=== PATIENT | male | born 1990 | race Caucasian/White ===

== ENCOUNTER 2019-01-23 12:33 | Emergency (ER) | payer OTHER ==
[~2019-01-23] VITALS: Wt 62.0 kg
[~2019-01-23 12:33] MED LIST: AMOX500C2 PO; IBUP-1542 PO; PRED20TA PO
[2019-01-23 12:35] VITALS: BP 140/91; PULSE 91; RESP 18
[2019-01-23] MEDS ORDERED: NAPR-985 PO (15:00)
[2019-01-23] MEDS ORDERED: AMOX500C2 PO (15:00)
--- NOTE | 2019-01-23 17:12 | ERD ---
ER Documentation Chief Complaint Chief Complaint JAW PAIN AND NUMBNESS SINCE TODAY. INITIAL TOOTHACHE 3 DAYS AGO HPI 28-year-old male with past medical history of HIV, currently on medication and undetectable viral loads, presents to the emergency department complaining of left lower tooth pain intermittently for the past 4 days. Symptoms have worsened. He also reports sore throat. He tried no medication for relief of symptoms. Symptoms are currently moderate in severity. He denies any fevers, chills, or other symptoms at this time. ROS All systems reviewed and are negative except as per history of present illness. Medications Home Meds Active Scripts Naproxen* (Naprosyn*) 500 Mg Tablet, 500 MG PO BID PRN for PAIN AND/OR INFLAMMATION, #30 TAB Prov:NAIN WARD PA-C 01/23/19 Amoxicillin* (Amoxicillin*) 500 Mg Cap, 500 MG PO TID for 10 Days, CAP Prov:NAIN WARD PA-C 01/23/19 Prednisone* (Prednisone*) 20 Mg Tab, 40 MG PO DAILY for 3 Days, TAB Prov:JANA WANG MD 04/15/15 Ibuprofen* (Motrin*) 600 Mg Tab, 600 MG PO Q6, #10 TAB Prov:JANA WANG MD 04/15/15 Amoxicillin* (Amoxicillin*) 500 Mg Cap, 500 MG PO TID for 10 Days, CAP Prov:JANA WANG MD 04/15/15 Allergies Allergies: Coded Allergies: No Known Allergy (Unverified , 07/13/15) PMhx/Soc Medical and Surgical Hx: pt denies Medical Hx History of Surgery: No Anesthesia Reaction: No Hx Neurological Disorder: No Hx Respiratory Disorders: No Hx Cardiac Disorders: No Hx Psychiatric Problems: No Hx Miscellaneous Medical Probl: No Hx Alcohol Use: No Hx Substance Use: No Hx Tobacco Use: No FmHx Family History: No diabetes Physical Exam Vitals Vital Signs Date Temp Pulse Resp B/P (MAP) Pulse Ox O2 O2 Flow FiO2 Time Delivery Rate 01/23/19 98.3 91 18 140/91 98 12:35 (107) Physical Exam Const: No acute distress Head: Atraumatic Eyes: Normal Conjunctiva ENT: Normal External Ears, Nose and Mouth. Mild gingival inflammation surrounding the lower left front teeth. No obvious dental abscess. Neck: Full range of motion. No meningismus. Resp: Clear to auscultation bilaterally Cardio: Regular rate and rhythm, no murmurs Skin: No petechiae or rashes Ext: No cyanosis, or edema Neur: Awake and alert Psych: Normal Mood and Affect Procedures/MDM 28-year-old male presents to the emergency department complaining of left lower frontal dental pain. History and physical examination most consistent with possible early dental abscess. No evidence of facial cellulitis, [place] angina, sepsis, or other emergencies. The patient is stable and appropriate for discharge and further outpatient management with prescriptions for amoxicillin and naproxen. Patient advised follow-up with his dentist and primary care physician within the next 24 to 48 hours and return to the department immediately for any new or worsening or concerning symptoms. He is in agreement with the diagnosis, plan, need for follow-up, return precautions. He was disch arged in stable condition and was nontoxic and afebrile. Patient's blood pressure was elevated (>120/80) but appears stable without evidence of hypertension emergency or urgency. The patient is to follow-up and pursue outpatient monitoring and therapy with their primary care physician within 1 week and return immediately if they have any new, worsening, or concerning symptoms. Disclaimer: Inadvertent spelling and grammatical errors are likely due to EHR/dictation software use and do not reflect on the overall quality of patient care. Also, please note that the electronic time recorded on this note does not necessarily reflect the actual time of the patient encounter. Departure Diagnosis: Primary Impression: Toothache Condition: Fair Patient Instructions: Dental Pain Referrals: [facility] YOU HAVE RECEIVED A MEDICAL SCREENING EXAM AND THE RESULTS INDICATE THAT YOU DO NOT HAVE A CONDITION THAT REQUIRES URGENT TREATMENT IN THE EMERGENCY DEPARTMENT. FURTHER EVALUATION AND TREATMENT OF YOUR CONDITION CAN WAIT UNTIL YOU ARE SEEN IN YOUR DOCTORS OFFICE WITHIN THE NEXT 1-2 DAYS. IT IS YOUR RESPONSIBILITY TO MAKE AN APPOINTMENT FOR FOLOW-UP CARE. IF YOU HAVE A PRIMARY DOCTOR --you should call your primary doctor and schedule an appointment IF YOU DO NOT HAVE A PRIMARY DOCTOR YOU CAN CALL OUR PHYSICIAN REFERRAL HOTLINE AT IF YOU CAN NOT AFFORD TO SEE A PHYSICIAN YOU CAN CHOSE FROM THE FOLLOWING [facility] [address] [facility]. [facility] [address] [facility]. [address] [facility] [address] [facility] [facility] [address] [facility]. [facility] [address] [facility]. [facility] [address] [place] [facility] ([facility] walk in clinic) Additional Instructions: Call your primary care doctor TOMORROW for an appointment during the next 1-2 days.See the doctor sooner or return here if your condition worsens before your appointment time. NAIN WARD PA-C Jan 23, 2019 17:12
== END 2019-01-23 15:07 | disposition home or self-care (01) ==
LOC: FTE 12:33
DX: K08.89 Other specified disorders of teeth and supporting structures (principal); Z21 Asymptomatic human immunodeficiency virus [HIV] infection status
CPT/HCPCS: 99283

== ENCOUNTER 2019-01-28 11:17 | Emergency (ER) | payer OTHER ==
[~2019-01-28] VITALS: Ht 170.2 cm; Wt 55.5 kg
[~2019-01-28 11:17] MED LIST changes: +NAPR-985 PO
[2019-01-28 11:19] VITALS: Ht 170.2 cm; Wt 55.5 kg
[2019-01-28] MEDS ORDERED: CLINDAMYCIN 300 MG INJ IM ONE (12:30)
[2019-01-28] MEDS ORDERED: CLIN300C10 PO (12:42)
--- NOTE | 2019-01-28 12:56 | ERD ---
ER Documentation Chief Complaint Chief Complaint lt side dental infection, swelling, taking amoxicillin, not getting better HPI Patient is a 28-year-old male with past medical history of HIV, currently on antivirals and reports undetectable viral load, presents to the ER for concerns of chin swelling and pain x 2 days. Patient was seen here on 01-23-19 and given amoxicillin for his toothache. Patient states his tooth pain is completely resolved and he is now having redness and swelling to his chin for 2 days. Patient denies any fevers or chills. Patient denies any difficulty swallowing, throat pain, chest pain, shortness of breath, nausea, vomiting abdominal pain or diarrhea. ROS All systems reviewed and are negative except as per history of present illness. Medications Home Meds Active Scripts Clindamycin Hcl* (Clindamycin Hcl*) 300 Mg Capsule, 300 MG PO TID for 10 Days, CAP Prov:MUNA MURO PA-C 01/28/19 Naproxen* (Naprosyn*) 500 Mg Tablet, 500 MG PO BID PRN for PAIN AND/OR INFLAMMATION, #30 TAB Prov:NAIN WARD PA-C 01/23/19 Amoxicillin* (Amoxicillin*) 500 Mg Cap, 500 MG PO TID for 10 Days, CAP Prov:NAIN WARD PA-C 01/23/19 Prednisone* (Prednisone*) 20 Mg Tab, 40 MG PO DAILY for 3 Days, TAB Prov:JANA COLLINS MD 04/15/15 Ibuprofen* (Motrin*) 600 Mg Tab, 600 MG PO Q6, #10 TAB Prov:JANA COLLINS MD 04/15/15 Amoxicillin* (Amoxicillin*) 500 Mg Cap, 500 MG PO TID for 10 Days, CAP Prov:JANA COLLINS MD 04/15/15 Allergies Allergies: Coded Allergies: No Known Allergy (Unverified , 07/13/15) PMhx/Soc Medical and Surgical Hx: pt denies Medical Hx, pt denies Surgical Hx History of Surgery: No Anesthesia Reaction: No Hx Neurological Disorder: No Hx Respiratory Disorders: No Hx Cardiac Disorders: No Hx Psychiatric Problems: No Hx Miscellaneous Medical Probl: No Hx Alcohol Use: No Hx Substance Use: No Hx Tobacco Use: No Smoking Status: Never smoker FmHx Family History: No diabetes Physical Exam Vitals Vital Signs Date Temp Pulse Resp B/P (MAP) Pulse Ox O2 O2 Flow FiO2 Time Delivery Rate 01/28/19 98.6 118 20 118/70 97 Room Air 13:06 (86) 01/28/19 98.2 90 18 143/90 98 11:19 (107) Physical Exam GENERAL: Well-developed, well-nourished male. Appears in no acute distress. HEAD: Normocephalic, atraumatic. EYES: Pupils are equally reactive bilaterally. EOMs grossly intact. No conjunctival erythema. ENT: Moist mucous membranes. No uvula deviation. No kissing tonsils. Lower teeth are nontender to palpation. No obvious redness or swelling noted to the gumline. NECK: Supple. No meningismus. Normal range of motion of the neck. LUNG: Clear to auscultation bilaterally. No rhonchi, wheezing, rales or coarse breath sounds. HEART: Regular rate and rhythm. No murmurs, rubs or gallops. EXTREMITIES: Equal pulses bilaterally. No peripheral clubbing, cyanosis or edema. No unilateral leg swelling. NEUROLOGIC: Alert and oriented. Moving all four extremities without any difficulty. Normal speech. Steady gait. SKIN: Faint erythema noted throughout the patient's chin. Affected area is tender to touch and mildly warm. No streaking. No fluctuance. Results 24 hrs Current Medications Medications Dose Sig/Tyrell Start Time Status Last (Trade) Ordered Route PRN Stop Time Admin Dose Reason Admin Clindamycin 300 mg ONCE ONCE 01/28/19 DC 01/28/19 Phosphate IM 12:30 01/28/19 12:27 (Cleocin) 12:31 Procedures/MDM MEDICAL DECISION MAKING: This is a 28-year-old male with past medical history of male who presents to the ER for chin redness and swelling. Patient was seen here 5 days ago and at that time he was having tooth pain x2 he was started on amoxicillin. Patient is to 3 and is completely resolved and now he is having swelling and redness to his chin. Vital signs were reviewed. Patient is afebrile. Patient was not hypoxic. On exam, patient appears to have localized swelling and redness to his chin consistent with cellulitis. No fluctuance or induration was noted consistent with an abscess. Patient's dental pain was completely resolved. The patient did not have any trismus, muffled voice, uvula deviation or unilateral tonsillar swelling or drooling. No hyperextension of the neck noted. Patient will be switched to clindamycin for concerns of cellulitis. Patient was given clindamycin 300 mg IM here in the ER today. Patient was advised to continue p.o. antibiotics at home. Patient was advised to return to the ER in 2 days for recheck of symptoms. Patient given strict return precautions advised to return to the ER for any fevers, chills, worsening redness, swelling, pain. Patient understood and was agreeable with this plan. Low suspicion for deep space infec tion, sepsis, abscess, fistula formation. Patient was also encouraged to follow-up with dentist as he does have poor dentition. The case was reviewed and discussed with Dr. Collins who agrees with the plan of care including labs, treatment, and advanced imaging as appropriate. PRESCRIPTIONS: Clindamycin DISCHARGE: At this time, patient is stable for discharge and outpatient management. I have instructed the patient to see a dentist today or tomorrow. I have instructed the patient to promptly return to the ER at any time for any new or worsening symptoms including increased pain, fever, swelling, neck swelling, neck stiffness, drooling or difficulty breathing. The patient and/or family expressed understanding of and agreement with this plan. All questions were answered. Home care instructions were provided. Disclaimer: Inadvertent spelling and grammatical errors are likely due to EHR/dictation software use and do not reflect on the overall quality of patient care. Also, please note that the electronic time recorded on this note does not necessarily reflect the actual time of the patient encounter. Departure Diagnosis: Primary Impression: Facial cellulitis Condition: Fair Patient Instructions: Cellulitis, Facial Referrals: [facility] YOU HAVE RECEIVED A MEDICAL SCREENING EXAM AND THE RESULTS INDICATE THAT YOU DO NOT HAVE A CONDITION THAT REQUIRES URGENT TREATMENT IN THE EMERGENCY DEPARTMENT. FURTHER EVALUATION AND TREATMENT OF YOUR CONDITION CAN WAIT UNTIL YOU ARE SEEN IN YOUR DOCTORS OFFICE WITHIN THE NEXT 1-2 DAYS. IT IS YOUR RESPONSIBILITY TO MAKE AN APPOINTMENT FOR FOLOW-UP CARE. IF YOU HAVE A PRIMARY DOCTOR --you should call your primary doctor and schedule an appointment IF YOU DO NOT HAVE A PRIMARY DOCTOR YOU CAN CALL OUR PHYSICIAN REFERRAL HOTLINE AT IF YOU CAN NOT AFFORD TO SEE A PHYSICIAN YOU CAN CHOSE FROM THE FOLLOWING [facility] [address] [facility] [address] [facility] [address] [facility] [address] [facility] [address] [facility]. [facility]. [address] [facility]. [facility] YOU HAVE RECEIVED A MEDICAL SCREENING EXAM AND THE RESULTS INDICATE THAT YOU DO NOT HAVE A CONDITION THAT REQUIRES URGENT TREATMENT IN THE EMERGENCY DEPARTMENT. FURTHER EVALUATION AND TREATMENT OF YOUR CONDITION CAN WAIT UNTIL YOU ARE SEEN IN YOUR DOCTORS OFFICE WITHIN THE NEXT 1-2 DAYS. IT IS YOUR RESPONSIBILITY TO MAKE AN APPOINTMENT FOR FOLOW-UP CARE. IF YOU HAVE A PRIMARY DOCTOR --you should call your primary doctor and schedule and appointment IF YOU DO NOT HAVE A PRIMARY DOCTOR YOU CAN CALL OUR PHYSICIAN REFERRAL HOTLINE AT . IF YOU CAN NOT AFFORD TO SEE A PHYSICIAN YOU CAN CHOSE FROM THE FOLLOWING PENDING SALE TO [facility]: [facility] [address] [place] [address] [facility] [address] [place] [address] [facility] [address] [place] [address] [facility] ([facility] walk in clinic) Additional Instructions: Recheck advised in 2 days. Monitor symptoms closely. If you have any new or worsening redness, swelling, pain, fevers or chills, return to the ER immediately. Contact your dentist and follow-up in regards to your tooth. Call your primary care doctor TOMORROW for an appointment during the next 1-2 days.See the doctor sooner or return here if your condition worsens before your appointment time. MUNA MURO PA-C Jan 28, 2019 12:56
[2019-01-28 13:06] VITALS: BP 118/70; PULSE 118; RESP 20
== END 2019-01-28 13:07 | disposition home or self-care (01) ==
LOC: FTE 11:17
DX: L03.211 Cellulitis of face (principal); Z21 Asymptomatic human immunodeficiency virus [HIV] infection status
CPT/HCPCS: 96372; Z7502; Z7610